=== PATIENT | female | born 1985 | race Hispanic/Latino ===

== ENCOUNTER 2017-11-15 08:16 | Inpatient (IN) | payer BC, OTHER ==
[2017-11-12 10:38] VITALS: BMI 33.6
[2017-11-15 09:17] LABS: BASO # 0.1 K/uL (0.0-0.2); BASO % 0.9 % (0.0-2.0); EOS # 0.1 K/uL (0.0-0.7); EOS % 1.1 % (0.0-4.0); HEMOGLOBIN 13.2 g/dL (12.0-16.0); LYMPH # 1.9 K/uL (1.0-4.3); MEAN CELL VOLUME 91.8 fl (81.0-99.0); MEAN CORPUSCULAR HGB CONC 34.9 g/dL (33.0-37.0); MEAN PLATELET VOLUME 8.4 fl (7.2-11.7); MONO # 0.3 K/uL (0.0-0.8); MONO % 5.7 % (0.0-10.0); NEUT # 3.6 K/uL (1.8-7.0); NEUT % 60.3 % (50.0-75.0); NRBC % 0.1 % (0.0-0.0); RBC 4.12 Mil/uL (3.80-5.20); RED CELL DISTRIBUTION WIDTH 13.1 % (11.5-14.5); WHITE BLOOD COUNT 5.9 K/uL (4.8-10.8)
[2017-11-15] MEDS ORDERED: Lactated Ringer's 1,000 ML IV ONE ×3 (09:30→17:00)
[2017-11-15] MEDS ORDERED: Bupivacaine 0.5% Inj(30mL) ONE (11:11)
[2017-11-15] MEDS ORDERED: Midazolam 2 MG/2 ML VIAL ONE (12:00)
[2017-11-15] MEDS ORDERED: Propofol 10 mg/ml Inj (20 ML) ONE (12:00)
[2017-11-15] MEDS ORDERED: ePHEDrine 50 mg/ml Inj ONE (12:01)
[2017-11-15] MEDS ORDERED: Lidocaine 4% (Laryng-O-Jet) Kit MM ONE (12:02)
[2017-11-15] MEDS ORDERED: Succinylcholine 200 mg/10 ml Inj IV ONE (12:02)
[2017-11-15] MEDS ORDERED: Rocuronium 10 mg/ml (5 ml) ONE (12:02)
[2017-11-15] MEDS ORDERED: Dexamethasone 4 mg/1 ml ONE (12:40)
[2017-11-15] MEDS ORDERED: Bupivacaine 0.5% Inj(30mL) IJ ONE (12:42)
[2017-11-15] MEDS ORDERED: Desflurane Inhalation Anesthetic Liq (240 ml) ONE (13:25)
[2017-11-15] MEDS ORDERED: Lactated Ringer's 1,000 ML IV SCH (15:00)
[2017-11-15] MEDS ORDERED: Oxycodone/Acetaminophen 5/325 mg Tab PO PRN (15:31)
[2017-11-15 17:33] VITALS: RESP 20
[2017-11-15] MEDS: ceFAZolin 2 GM in Sodium Chloride 0.9% 100 ML IVPB SCH (21:12)
[2017-11-16] MEDS: ceFAZolin 2 GM in Sodium Chloride 0.9% 100 ML IVPB SCH ×2 (03:10→11:18)
[2017-11-16 07:04] LABS: BLOOD UREA NITROGEN 9 mg/dl (7-17); CALCIUM 8.8 mg/dL (8.4-10.2); GFR AFRICAN-AMERICAN > 60; GFR NON-AFRICAN AMERICAN > 60; HEMOGLOBIN 11.8 g/dL (12.0-16.0); MEAN CELL VOLUME 92.9 fl (81.0-99.0); MEAN CORPUSCULAR HEMOGLOBIN 32.3 pg (27.0-31.0); MEAN CORPUSCULAR HGB CONC 34.8 g/dL (33.0-37.0); RBC 3.66 Mil/uL (3.80-5.20); RED CELL DISTRIBUTION WIDTH 13.2 % (11.5-14.5); WHITE BLOOD COUNT 7.8 K/uL (4.8-10.8)
--- NOTE | 2017-11-16 09:11 | CP.PCM.PN ---
Subjective - Date & Time of Evaluation Date of Evaluation: 11/16/17 Time of Evaluation: 08:00 - Subjective Subjective: Patient seen and examined OOB to chair comfortable. She was nauseous yesterday but this is resolved today as she is tolerating her breakfast well. Her pain is well controlled and she was able to void and transfer without difficulty. No new complaints. Objective - Vital Signs/Intake and Output Vital Signs (last 24 hours): Temp Pulse Resp BP Pulse Ox 99.9 F H 88 20 122/64 98 11/16/17 04:40 11/16/17 04:40 11/16/17 04:40 11/16/17 04:40 11/16/17 04:40 - Medications Medications: Current Medications Hydromorphone HCl (Dilaudid) 0.5 mg IVP Q4H PRN PRN Reason: Pain, moderate (4-7) Last Admin: 11/16/17 03:01 Dose: 0.5 mg Lactated Ringer's (Lactated Ringer's) 1,000 mls @ 125 mls/hr IV .Q8H LINDA Last Admin: 11/16/17 03:08 Dose: 125 mls/hr Cefazolin Sodium 2 gm/ Sodium (Chloride) 100 mls @ 100 mls/hr IVPB Q8H LINDA PRN Reason: Protocol Stop: 11/16/17 12:59 Last Admin: 11/16/17 03:10 Dose: 100 mls/hr Ondansetron HCl (Zofran Inj) 4 mg IVP Q6 PRN PRN Reason: Nausea/Vomiting Last Admin: 11/15/17 20:27 Dose: 4 mg Oxycodone/Acetaminophen (Percocet 5/325 Mg Tab) 1 tab PO Q6 PRN PRN Reason: Pain, moderate (4-7) Stop: 11/18/17 15:32 Last Admin: 11/16/17 09:02 Dose: 1 tab - Labs Labs: 11/16/17 06:30 11/16/17 06:30 - Constitutional Appears: No Acute Distress - Eye Exam Eye Exam: Normal appearance - ENT Exam ENT Exam: Mucous Membranes Moist - Respiratory Exam Respiratory Exam: NORMAL BREATHING PATTERN - GI/Abdominal Exam GI & Abdominal Exam: Soft, Normal Bowel Sounds Additional comments: Portal dressings clean dry and intact, mild tenderness about portal sites, no erythema or drainage. - Neurological Exam Neurological Exam: Alert, Awake, Oriented x3 - Psychiatric Exam Psychiatric exam: Normal Affect, Normal Mood Assessment and Plan (1) Endometriosis Assessment & Plan: Patient is POD#1 from robotic laproscopy, hysteroscopy and laproscopic appendectomy doing well -Complete abx dose -OOB as luis -no heavy lifting -ok to d/c home -call office for appt -will d/w Dr. Tracy Status: Acute
[2017-11-16 12:33] VITALS: BP 114/64; PULSE 88; TEMP 99.1; O2SAT 97
--- NOTE | 2017-11-18 08:36 | PCM.OP ---
Operative Report - Operative Report Date of Surgery/Procedure: 11/15/17 Time of Surgery/Procedure: 10:00 Surgeon: Dr. Jamal Swanson Kaiako Kohanga Reo: Dr. Anil Tracy Anesthesia/Sedation: general/Dr. Capone Pre-Operative Diagnosis: abdominal pain and enodmetriosis Post-Operative Diagnosis: appendix and mendy-rectal endometriosis Indication for Surgery: as above Operative Findings: as above Procedure/Operation Description: 1-Excision mendy-rectal endometriosis. 2- Appendectomy. 3-Lysis of Adhesions. Breif History: This is a 31 year old woman with past medical histroyn of abdominal pain and endometriosis who was already brought to the operating room by Dr. Tracy for robotic exploration when he requested an intraoperative general surgery consultation for invovlement of the rectum and appendix. Description of the Procedure: The patient had already been brought to the operating room and had undergone robotic exploration (separate didctation Dr. Tracy). After taking control of the robotic console significant adhesions were noted in the pelvis involving the sigmoid colon, reectum and uterus. With blunt and sharp dissection with the aid of electrocautery these were completely lysed. Then the area of the rectum was first inspected and a lesion in the mid-portion of the rectum was recognized. Using blunt and sharp dissection with the aid of electrocautery the lesion was incised circumferentially and was excised en-bloc accordingly. The specimen was marked and sent to pathology separately. Our attention turned to the appendix and using the electrocautery the mesentery of the appendix was dessicated with particular attention to the appendiceal artery. With the dissection complete to the base a 3-0 PDS endoloop was placed at the base and the appendix was ligated. Another two endoloops were placed in the usual fashion. the appendix was trasected and the mucosa was gmnetly dessicated with electrocautery. The [facility] was marked [facility] Hemostasis was deemed adeqaute and all counts were correct. The operation was then turned oveer to Dr. Tracy (separate dictation Dr. Tracy). Estimated Blood Loss: 200 cc Complications: none Specimen: 6-Gsil-erwhub ednometriosis. 2-Appendix Discharge & Condition: stable
--- NOTE | 2017-11-27 14:38 | OP ---
PROCEDURE DATE: 11/15/2017 PREOPERATIVE DIAGNOSES: Pelvic pain and history of recurrent endometriosis. POSTOPERATIVE DIAGNOSES: Pelvic pain and history of recurrent endometriosis. Pelvic adhesion, pelvic endometriosis, and left hydrosalpinx. PROCEDURE PERFORMED: Cystoscopy with bilateral ureteral catheterization and injection of dye IC green, hysteroscopy diagnostic, robotic laparoscopy,lysis of adhesions, right ureterolysis., left ureterolysis, excision of endometriosis and left salpingectomy, and separately an appendectomy to be dictated by Dr. Swanson from General Surgery. SURGEON: Anil Tracy MD MARKETING STRATEGY LEAD: Jamal Swanson MD TYPE OF ANESTHESIA: General endotracheal. ESTIMATED BLOOD LOSS: Minimal. COMPLICATIONS: None. SPECIMEN: Multiple specimens from the pelvic sidewall and fallopian tube and appendix sent to pathology. INDICATION FOR THE PROCEDURE: The patient is a 31-year-old female with a history of two prior surgeries for severe endometriosis. The patient had persistent symptoms. She was counseled with regards to the extensive and risk of the surgery and risk of benefits. Prior to the surgery, she reaffirmed a desire to move forward with the surgery. She signed the consent and she was taken to the OR. Please note that the patient had two prior surgeries, which were very extensive including one from a Gynecologic/Oncologist requiring extensive dissection and therefore, evaluation of the ureters with fluorescent technology was absolutely necessitate in this case. DESCRIPTION OF PROCEDURE: After adequate anesthesia was obtained, the patient was placed in the dorsal lithotomy position. An extreme care was placed in padding every area prone to pressure and also to avoid excessive hyperflexion or hyperextension of the hips, which were in a fixed position in a very comfortable state. At this point, the patient was prepped and draped. The surgeon was gowned and gloved. At this point, a cystoscope was placed into the bladder. The bladder appear to be normal without any stones or lesions. Both ureters were in the normal anatomical position. The left ureter was then cannulized with a 5-Slovak open-ended catheter to the distal ureter and 5 mL of IC-Green were injected. The right ureter was then also cannulized all the way to the distal ureter with 5 mL of IC-Green injected. At this point, the catheters were removed and a Prince was placed into the bladder. A speculum was placed into the vagina. The anterior lip of the cervix was grasped and the ureteres was visualized, cavity appear to be normal without any major lesions, tumors or polyps. At this point, attention was then on the abdomen where an open laparoscopy was performed according to standard technique. The fascia was incised using a knife and the peritoneum in a blunt way. At this point, a cannula was placed. The abdomen was insufflated and the pelvis was visualized. The findings were as follows; extensive adhesions involving a complex mass on the left hand side involving the ovary, the descending colon, and in a large area with endometriosis, the remnants of the left fallopian tube. On the right end side, the area was slightly freed, but the ovary involved on side with endometriotic disease. The appendix appear to be also involving adhesions. General surgery was called in to assist in the procedure. Under direct visualization, ports were placed in right upper quadrant, left upper quadrant, and mid quadrant and [employer] robot was brought into the field. Dr. Swanson, performed an appendectomy, that he will dictate separately and dissected the colon of the pelvic sidewall in the left hand side. The adhesions were mostly involved in the mesocolon. The left ovary was sitting right on top of the pelvic rim in a mass which was tubal ovarian mass including endometriosis disease. It was elaborate dissection, a fluorescent technology was used to identify the ureter in order to separate the structures, which were adherent to each other. Once they were freed, I was able to free up remnants of the fallopian tube, which had already been partially excised and a mass containing endometriosis in the left fallopian tube was excised and sent to pathology. The ovary otherwise at this point freed of endometriosis was repositioned in anatomical position. Attention now was on the right hand side where the ureter was identified, the ovary was elevated and progressive dissection was performed, freeing up the ovary, entering the retroperitoneal space and dissecting the ureter and lateralizing it and well medialized the peritoneal lesion containing endometriosis. A full dissection was performed with extreme care not to injure the ureter. That the obtained large area of peritoneum containing endometriosis, sent to pathology. At this point, the plasma energy device was brought into the field and it was utilized to ablate areas of peritoneum that appeared not to be affective by endometriosis, but to be quite inflamed. These were ablated including areas of cul-de-sac in the upper pelvic rim. At this point, she was checked for hemostasis and appear to be excellent. The pelvis was irrigated. The [employer] robot was undocked. The instruments were removed. The incision was closed in layers with 0 PDS for the fascia and, 4-0 Monocryl for the skin. At the end of the procedure, all tapes and instrument counts were correct. The patient tolerated the procedure well, was taken to recovery room in excellent condition. Anil Tracy MD
== END 2017-11-16 12:45 | disposition home or self-care (01) | DRG 334 ==
LOC: H.OPSURG 08:16 → H.PEDS 15:39
PROVIDERS: ADMIT Obstetrics & Gynecology Reproductive Endocrinology; ATTEND Obstetrics & Gynecology Reproductive Endocrinology
PROC: 8E0W4CZ Robotic Assisted Procedure of Trunk Region, Percutaneous Endoscopic Approach (ICD-10-PCS; 2017-11-15)
PROC: 0UJD8ZZ Inspection of Uterus and Cervix, Via Natural or Artificial Opening Endoscopic (ICD-10-PCS; 2017-11-15)
PROC: 0DBP4ZZ Excision of Rectum, Percutaneous Endoscopic Approach (ICD-10-PCS; principal; 2017-11-15 11:00)
PROC: 0DTJ4ZZ Resection of Appendix, Percutaneous Endoscopic Approach (ICD-10-PCS; 2017-11-15 11:00)
PROC: 0DNW4ZZ Release Peritoneum, Percutaneous Endoscopic Approach (ICD-10-PCS; 2017-11-15 11:00)
DX: N80.5 Endometriosis of intestine (principal); N73.6 Female pelvic peritoneal adhesions (postinfective)

== ENCOUNTER 2017-11-21 17:24 | Observation (INO) | payer BC ==
[2017-11-21 17:24] VITALS: BMI 33.6
--- NOTE | 2017-11-21 18:18 | ED PDOC ---
HPI: Abdomen Time Seen by Provider: 11/21/17 18:15 Chief Complaint (Nursing): Abdominal Pain Chief Complaint (Provider): abdominal pain History Per: Patient (31 y/o female recent robotic laproscopy, hysteroscopy and laproscopic appendectomy for endometriosis lesions by rectum/appendix 11/15 here for evaluation of fever 103 and lower abdominal pain. Denies any urinary frequency/hematuria/cough. Notes vomiting initially after sx and again today. Has has flatus but no BM in 1 week.) Past Medical History Reviewed: Historical Data, Nursing Documentation, Vital Signs Vital Signs: Last Vital Signs Temp 100.3 F H 11/21/17 18:11 Pulse 108 H 11/21/17 17:27 Resp 20 11/21/17 17:27 BP 115/78 11/21/17 17:27 Pulse Ox 99 11/21/17 20:18 - Medical History PMH: Denies: Chronic Kidney Disease - Family History Family History: States: No Known Family Hx - Home Medications Home Medications: Ambulatory Orders Medication Instructions Recorded Metformin ER [Glucophage XR] 750 mg PO BID 11/15/17 Sertraline [Zoloft] 12.5 mg PO DAILY 11/15/17 - Allergies Allergies/Adverse Reactions: Allergies Allergy/AdvReac Type Severity Reaction Status Date / Time No Known Allergies Allergy Verified 11/15/17 08:36 Review of Systems ROS Statement: Except As Marked, All Systems Reviewed And Found Negative Constitutional: Positive for: Fever Gastrointestinal: Positive for: Vomiting, Abdominal Pain Physical Exam - Reviewed Nursing Documentation Reviewed: Yes Vital Signs Reviewed: Yes - Physical Exam Appears: Positive for: Well, Non-toxic, No Acute Distress Head Exam: Positive for: ATRAUMATIC, NORMAL INSPECTION, NORMOCEPHALIC Skin: Positive for: Normal Color, Warm, DRY Eye Exam: Positive for: EOMI, Normal appearance, PERRL ENT: Positive for: Normal ENT Inspection Neck: Positive for: Normal, Painless ROM Cardiovascular/Chest: Positive for: Regular Rate, Rhythm Respiratory: Positive for: CNT, Normal Breath Sounds Gastrointestinal/Abdominal: Positive for: Normal Exam, Bowel Sounds, Soft, Other (active bowel movements. Patient notes abdominal pain lower/suprapubic region) Back: Positive for: Normal Inspection Extremity: Positive for: Normal ROM Neurologic/Psych: Positive for: Alert, Oriented - Laboratory Results Result Diagrams: 11/21/17 19:00 11/21/17 19:00 - ECG O2 Sat by Pulse Oximetry: 99 - Progress ED Course And Treament: operating room surgical technician to come to ED for evaluation of patient. recommendation for CT abd/pelvis with oral/iv contrast. NS 1 liter 500ml per hour Disposition - Clinical Impression Clinical Impression: Abdominal pain in female - Patient ED Disposition Is Patient to be Admitted: Transfer of Care - Disposition Disposition: Transfer of Care Disposition Time: 20:00 Condition: FAIR Instructions: Acute Abdomen (Belly Pain) Forms: Kiala (Nepali) Patient Signed Over To: Anay Schneider Handoff Comments: pending UA/CT abd-pelvis
[2017-11-21] MEDS ORDERED: Sodium Chloride 0.9% 1,000 ML IV STA (18:21)
[2017-11-21] MEDS ORDERED: Iohexol 240 (50 ml) PO ONE (18:32)
[2017-11-21 19:14] LABS: BASO % 0.3 % (0.0-2.0); EOS # 0.1 K/uL (0.0-0.7); EOS % 0.9 % (0.0-4.0); HEMOGLOBIN 12.3 g/dL (12.0-16.0); LYMPH # 0.8 K/uL (1.0-4.3); LYMPH % 10.4 % (20.0-40.0); MEAN CELL VOLUME 91.9 fl (81.0-99.0); MEAN CORPUSCULAR HEMOGLOBIN 31.6 pg (27.0-31.0); MEAN CORPUSCULAR HGB CONC 34.4 g/dL (33.0-37.0); MEAN PLATELET VOLUME 7.9 fl (7.2-11.7); MONO # 0.5 K/uL (0.0-0.8); MONO % 5.8 % (0.0-10.0); NEUT # 6.6 K/uL (1.8-7.0); NEUT % 82.6 % (50.0-75.0); NRBC % 0.1 % (0.0-0.0); RBC 3.89 Mil/uL (3.80-5.20); RED CELL DISTRIBUTION WIDTH 12.4 % (11.5-14.5)
[2017-11-21 19:27] LABS: ALB/GLOB RATIO 1.2 (1.0-2.1); ALBUMIN 4.3 g/dL (3.5-5.0); ALT/SGPT 90 U/L (9-52); AST/SGOT 40 U/L (14-36); BLOOD UREA NITROGEN 11 mg/dl (7-17); CALCIUM 9.5 mg/dL (8.4-10.2); GFR AFRICAN-AMERICAN > 60; GFR NON-AFRICAN AMERICAN > 60; INR 1.3 (0.9-1.2); LIPASE 52 U/L (23-300); PARTIAL THROMBOPLASTIN TIME 33.4 Seconds (25.6-37.1)
[2017-11-21] MEDS ORDERED: Iohexol 240 (50 ml) ONE (19:27)
[2017-11-21 19:40] LABS: SQUAMOUS EPITHIAL 3 /hpf (0-5); URINE BILIRUBIN NEGATIVE (NEGATIVE); URINE BLOOD MODERATE (NEGATIVE); URINE CLARITY SLIGHTY-CLOUDY (Clear); URINE COLOR YELLOW (YELLOW); URINE GLUCOSE (UA) NEG (Normal); URINE LEUKOCYTE ESTERASE NEG Leu/uL (Negative); URINE NITRATE NEGATIVE (NEGATIVE); URINE PROTEIN 30 mg/dL (NEGATIVE); URINE UROBILINOGEN 0.2-1.0 mg/dL (0.2-1.0)
[2017-11-21] MEDS ORDERED: Iohexol 300 100 ML IJ ONE (21:14)
[2017-11-21] MEDS ORDERED: Bisacodyl 5mg EC Tab PO PRN (22:25)
--- NOTE | 2017-11-21 22:46 | CT ---
EXAM: CT Abdomen and Pelvis With Intravenous Contrast EXAM DATE/TIME: 11/21/2017 6:32 PM CLINICAL HISTORY: 31 years old, female; Pain; Abdominal pain; Generalized; Prior surgery; Surgery date: 3-7 days post-operative; Surgery type: Robotic endometriosis, and appendix was removed; Additional info: R/O sbo TECHNIQUE: Axial computed tomography images of the abdomen and pelvis with intravenous contrast. All CT scans at this facility use one or more dose reduction techniques, viz.: automated exposure control; ma/kV adjustment per patient size (including targeted exams where dose is matched to indication; i.e. head); or iterative reconstruction technique. Coronal and sagittal reformatted images were created and reviewed. CONTRAST: 90 mL of [id number] administered intravenously. COMPARISON: There are no prior studies for comparison. FINDINGS: Lower thorax: Heart size is normal. Lung bases are clear ABDOMEN: Liver: unremarkable Gallbladder and bile ducts: unremarkable Pancreas: unremarkable Spleen: Spleen is mildly enlarged. There are multiple splenules in the left upper quadrant. Adrenals: unremarkable Kidneys and ureters: unremarkable Stomach and bowel: The stomach is partially distended. Rotation is normal. There is no small bowel obstruction. Proximal small bowel is opacified with contrast and is normal in caliber. The distal small bowel is distended with air. There is distal and terminal ileal wall thickening and fold irregularity. There is thickening of the base of the cecum with fluid around the base of the cecum. There is phlegmon/posterior and medial to the cecum, image 56 series 602, images 110-118, series 3. There is a moderately large amount of stool throughout the colon. Appendix: Surgically absent PELVIS: Bladder: Bladder is partially distended. Reproductive: Uterus is unremarkable. There is prominence of both adnexa. ABDOMEN and PELVIS: Intraperitoneal space: There is a small amount of free fluid in the pelvis. There is fluid around the base of the cecum. There is a small amount of free air both lower quadrants of the pelvis. Bones/joints: There are no acute osseous abnormalities. Soft tissues: There are postsurgical changes in the abdominal wall. Vasculature: There are pelvic varices bilaterally. There are multiple collateral vessels in the left retroperitoneum. Aorta and inferior vena cava are unremarkable. Lymph nodes: There are multiple mildly enlarged mesenteric nodes greatest in the right lower quadrant. There is shotty para-aortic adenopathy. IMPRESSION: Distal and terminal ileal inflammation with wall and fold thickening and inflammation and thickening of the base of the cecum; fluid around the base of the cecum with postero-medial phlegmon; prior appendectomy; small amount of postoperative free air in both lower quadrants of the pelvis; prominence of both adnexa; bilateral pelvic varices with multiple collateral vessels in the left retroperitoneum; mild splenomegaly; adenopathy
--- NOTE | 2017-11-21 22:50 | ED PDOC ---
- Laboratory Results Result Diagrams: 11/21/17 19:00 11/21/17 19:00 - ECG O2 Sat by Pulse Oximetry: 99 - Progress ED Course And Treament: Case endorsed to investigative writer from Marcelino THOMAS pending CT EXAM: CT Abdomen and Pelvis With Intravenous Contrast EXAM DATE/TIME: 11/21/2017 6:32 PM CLINICAL HISTORY: 31 years old, female; Pain; Abdominal pain; Generalized; Prior surgery; Surgery date: 3-7 days postoperative; Surgery type: Robotic endometriosis, and appendix was removed; Additional info: R/O sbo TECHNIQUE: Axial computed tomography images of the abdomen and pelvis with intravenous contrast. All CT scans at this facility use one or more dose reduction techniques, viz.: automated exposure control; ma/kV adjustment per patient size (including targeted exams where dose is matched to indication; i.e. head); or iterative reconstruction technique. Coronal and sagittal reformatted images were created and reviewed. CONTRAST: 90 mL of [id number] administered intravenously. COMPARISON: There are no prior studies for comparison. FINDINGS: Lower thorax: Heart size is normal. Lung bases are clear ABDOMEN: Liver: unremarkable Gallbladder and bile ducts: unremarkable Pancreas: unremarkable Spleen: Spleen is mildly enlarged. There are multiple splenules in the left upper quadrant. Adrenals: unremarkable Kidneys and ureters: unremarkable Stomach and bowel: The stomach is partially distended. Rotation is normal. There is no small bowel obstruction. Proximal small bowel is opacified with contrast and is normal in caliber. The distal small bowel is distended with air. There is distal and terminal ileal wall thickening and fold irregularity. There is thickening of the base of the cecum with fluid around the base of the cecum. There is phlegmon/posterior and medial to the cecum, image 56 series 602, images 110-118 , series 3. There is a moderately large amount of stool throughout the colon. Appendix: Surgically absent PELVIS: Bladder: Bladder is partially distended. Reproductive: Uterus is unremarkable. There is prominence of both adnexa. ABDOMEN and PELVIS: Intraperitoneal space: There is a small amount of free fluid in the pelvis. There is fluid around the base of the cecum. There is a small amount of free air both lower quadrants of the pelvis. Bones/joints: There are no acute osseous abnormalities. Soft tissues: There are postsurgical changes in the abdominal wall. Vasculature: There are pelvic varices bilaterally. There are multiple collateral vessels in the left retroperitoneum. Aorta and inferior vena cava are unremarkable. Lymph nodes: There are multiple mildly enlarged mesenteric nodes greatest in the right lower quadrant. There is shotty para-aortic adenopathy. IMPRESSION: Distal and terminal ileal inflammation with wall and fold thickening and inflammation and thickening of the base of the cecum; fluid around the base of the cecum with postero-medial phlegmon; prior appendectomy; small amount of postoperative free air in both lower quadrants of the pelvis; prominence of both adnexa; bilateral pelvic varices with multiple collateral vessels in the left retroperitoneum; mild splenomegaly; adenopathy Dr. Everett aware of CT findings, IV antibiotics ordered, patient to be admitted as per Dr. Swanson. Disposition - Clinical Impression Clinical Impression: Postoperative abdominal pain - POA Present On Arrival: Surgical Site Infection - Disposition Disposition: Admitted as In-Patient Disposition Time: 22:15 Condition: FAIR
[2017-11-21] MEDS ORDERED: Piperacillin/Tazobact 3.375 GM in Sodium Chloride 0.9% 100 ML IVPB STA (23:00)
[2017-11-21] MEDS ORDERED: Piperacillin/Tazobact 3.375 gm Inj IVPB ONE (23:24)
[2017-11-21] MEDS: Sodium Chloride 0.9% 1,000 ML IV SCH (23:29)
[2017-11-21] MEDS: Piperacillin/Tazobact 3.375 GM in Sodium Chloride 0.9% 100 ML IVPB SCH ×2 (23:29→23:45)
--- NOTE | 2017-11-22 00:19 | CP.PCM.HP ---
History of Present Illness - History of Present Illness History of Present Illness: Surgery: Dr. Swanson CC: Abd pain HPI: 31F w. pmh of endometriosis w. underwent robotic assisted excision of endometriosis as well as SONA and appendectomy 1 week ago presents to ED w. new onset abd pain. Pt states that pain began at 5Am, pain is in the lower quadrants , pain is constant. Pt states that she has been having fevers as high as 103 and has been experiencing diaphoresis. Pain was associated w. nausea and several episodes of clear emesis. She also reports decreased appetite as well as lack of BM since surgery 7 days ago. She is passing flatus. Pt states that she was given narcotics following surgery and she has been taking them as scheduled w. out stool softener. In ED CT scan was done which showed pos- operative inflammatory changes / phlegmon, and constipation. PMH: endometriosis PSH: laparoscopic esxcision of endometriosis x 3 Meds: MAR reviewed NKDA Social: No ETOH/tobacco/drugs Fhx: Non-contributory Present on Admission - Present on Admission Any Indicators Present on Admission: No Review of Systems - Review of Systems All systems: reviewed and no additional remarkable complaints except (HPI) Past Patient History - Past Medical History & Family History Past Medical History?: No - Past Social History Smoking Status: Never Smoked - CARDIAC Hx Cardiac Disorders: No - PULMONARY Hx Respiratory Disorders: No - NEUROLOGICAL Hx Neurological Disorder: No - HEENT Hx HEENT Problems: No - RENAL Hx Chronic Kidney Disease: No - ENDOCRINE/METABOLIC Hx Endocrine Disorders: No - HEMATOLOGICAL/ONCOLOGICAL Hx Blood Disorders: No - INTEGUMENTARY Hx Dermatological Problems: No - MUSCULOSKELETAL/RHEUMATOLOGICAL Hx Musculoskeletal Disorders: No - GASTROINTESTINAL Hx Gastrointestinal Disorders: No - GENITOURINARY/GYNECOLOGICAL Hx Genitourinary Disorders: No - PSYCHIATRIC Hx Psychophysiologic Disorder: No Hx Substance Use: No - SURGICAL HISTORY Hx Surgeries: Yes Hx Dilation and Curettage: Yes (x4-miscarriage) Other/Comment: ivf x 3, laparoscopy x 2 - ANESTHESIA Hx Anesthesia: Yes Hx Anesthesia Reactions: No Hx Malignant Hyperthermia: No Meds Allergies/Adverse Reactions: Allergies Allergy/AdvReac Type Severity Reaction Status Date / Time No Known Allergies Allergy Verified 11/15/17 08:36 Physical Exam - Constitutional Appears: Non-toxic, No Acute Distress - Head Exam Head Exam: ATRAUMATIC, NORMOCEPHALIC - Eye Exam Eye Exam: EOMI - ENT Exam ENT Exam: Mucous Membranes Moist, Normal External Ear Exam - Neck Exam Neck exam: Positive for: Full Rom - Respiratory Exam Respiratory Exam: NORMAL BREATHING PATTERN. absent: Accessory Muscle Use, Respiratory Distress - GI/Abdominal Exam GI & Abdominal Exam: Firm (lower quadrants), Soft, Tenderness (lower quadrants) . absent: Distended, Guarding, Hernia, Rebound, Rigid Additional comments: incisions C/D/I - Extremities Exam Extremities exam: Negative for: calf tenderness, pedal edema - Neurological Exam Neurological exam: Alert, Oriented x3 - Psychiatric Exam Psychiatric exam: Normal Affect, Normal Mood Results - Vital Signs Recent Vital Signs: Last Vital Signs Temp 99.2 F 11/22/17 00:18 Pulse 102 H 11/22/17 00:18 Resp 18 11/22/17 00:18 BP 122/81 11/22/17 00:18 Pulse Ox 97 11/22/17 00:18 - Labs Result Diagrams: 11/21/17 19:00 11/21/17 19:00 Labs: Laboratory Results - last 24 hr 11/21/17 11/21/17 11/21/17 19:00 19:00 19:00 WBC 8.0 RBC 3.89 Hgb 12.3 Hct 35.8 MCV 91.9 MCH 31.6 H MCHC 34.4 RDW 12.4 Plt Count 259 MPV 7.9 Neut % (Auto) 82.6 H Lymph % (Auto) 10.4 L [place] % (Auto) 5.8 Eos % (Auto) 0.9 Baso % (Auto) 0.3 Neut # (Auto) 6.6 Lymph # (Auto) 0.8 L [place] # (Auto) 0.5 Eos # (Auto) 0.1 Baso # (Auto) 0.0 PT 14.0 H INR 1.3 H APTT 33.4 Sodium 139 Potassium 4.1 Chloride 99 Carbon Dioxide 25 Anion Gap 19 BUN 11 Creatinine 0.6 L Est GFR ( Amer) > 60 Est GFR (Non-Af Amer) > 60 Random Glucose 106 H Calcium 9.5 Total Bilirubin 0.8 AST 40 H ALT 90 H Alkaline Phosphatase 72 Total Protein 7.8 Albumin 4.3 Globulin 3.5 Albumin/Globulin Ratio 1.2 Lipase 52 Urine Color Urine Clarity Urine pH Ur Specific [place] Urine Protein Urine Glucose (UA) Urine Ketones Urine Blood Urine Nitrate Urine Bilirubin Urine Urobilinogen Ur Leukocyte Esterase Urine RBC (Auto) Urine Microscopic WBC Ur Squamous Epith Cells 11/21/17 19:05 WBC RBC Hgb Hct MCV MCH MCHC RDW Plt Count MPV Neut % (Auto) Lymph % (Auto) [place] % (Auto) Eos % (Auto) Baso % (Auto) Neut # (Auto) Lymph # (Auto) [place] # (Auto) Eos # (Auto) Baso # (Auto) PT INR APTT Sodium Potassium Chloride Carbon Dioxide Anion Gap BUN Creatinine Est GFR ( Amer) Est GFR (Non-Af Amer) Random Glucose Calcium Total Bilirubin AST ALT Alkaline Phosphatase Total Protein Albumin Globulin Albumin/Globulin Ratio Lipase Urine Color Yellow Urine Clarity Slighty-cloudy Urine pH 5.0 Ur Specific [place] 1.025 Urine Protein 30 Urine Glucose (UA) Neg Urine Ketones 80 Urine Blood Moderate Urine Nitrate Negative Urine Bilirubin Negative Urine Urobilinogen 0.2-1.0 Ur Leukocyte Esterase Neg Urine RBC (Auto) 7 H Urine Microscopic WBC 4 Ur Squamous Epith Cells 3 - Imaging and Cardiology CT scan - abdomen Status: Image reviewed by me, Report reviewed by me Assessment & Plan - Assessment and Plan (Free Text) Assessment: 31F 1 week post-op robotic assisted excision of endometriosis and appendectomy w. phlegmon and constipation -NPO -IVF -zosyn -avoid narcotics, tylenol / NSAIds for pain -stool softeners -serial abd exam -d/w dr. Sky Everett PGY3 Decision To Admit - Pt Status Changed To: Hospital Disposition Of: Observation - . Bed Request Type: Med/Surg Admitting Physician: Jamal Swanson
[2017-11-22] MEDS: Piperacillin/Tazobact 3.375 GM in Sodium Chloride 0.9% 100 ML IVPB SCH ×3 (05:47→19:50)
[2017-11-22] MEDS: Insulin Regular 100 units/ml SC SCH ×3 (06:58→16:39)
[2017-11-22] MEDS: Sodium Chloride 0.9% 1,000 ML IV SCH ×3 (06:58→22:30)
--- NOTE | 2017-11-22 15:33 | CP.PCM.PN ---
Subjective - Date & Time of Evaluation Date of Evaluation: 11/22/17 Time of Evaluation: 09:00 - Subjective Subjective: patient [id number] ovbernight with nausea and temperature spike at home on admission patient was afebrile passing gas a ct scan reveal no bowel obstruction or perforation thi am patiewnt had bowel movement x2 doing well otherwise on antibiotics Objective - Vital Signs/Intake and Output Vital Signs (last 24 hours): Temp Pulse Resp BP Pulse Ox 98.5 F 76 18 106/71 97 11/22/17 07:40 11/22/17 07:40 11/22/17 07:40 11/22/17 07:40 11/22/17 07:40 - Medications Medications: Current Medications Acetaminophen (Tylenol 325mg Tab) 650 mg PO Q6 PRN PRN Reason: Pain, Mild (1-3) Last Admin: 11/22/17 06:01 Dose: 650 mg Bisacodyl (Dulcolax) 10 mg PO DAILY PRN PRN Reason: Constipation Docusate Sodium (Colace) 100 mg PO BID [facility] Last Admin: 11/22/17 08:26 Dose: 100 mg Famotidine (Pepcid) 20 mg PO BID [facility] Last Admin: 11/22/17 08:26 Dose: 20 mg Sodium Chloride (Sodium Chloride 0.9%) 1,000 mls @ 125 mls/hr IV .Q8H [facility] Last Admin: 11/22/17 06:58 Dose: Not Given Piperacillin Sod/Tazobactam (Sod 3.375 gm/ Sodium Chloride) 100 mls @ 100 mls/ hr IVPB Q6H [facility] PRN Reason: Protocol Last Admin: 11/22/17 11:59 Dose: 100 mls/hr Insulin Human Regular (Humulin R) 0 units SC ACHS [facility] PRN Reason: Protocol Last Admin: 11/22/17 11:53 Dose: Not Given Ketorolac Tromethamine (Toradol) 30 mg IVP Q6 PRN PRN Reason: Pain, moderate (4-7) Ondansetron HCl (Zofran Inj) 4 mg IVP Q4 PRN PRN Reason: Nausea/Vomiting - Labs Labs: 11/21/17 19:00 11/21/17 19:00 PT 14.0 Seconds (9.8-13.1) H 11/21/17 19:00 INR 1.3 (0.9-1.2) H 11/21/17 19:00 APTT 33.4 Seconds (25.6-37.1) 11/21/17 19:00 Assessment and Plan - Assessment and Plan (Free Text) Assessment: post surgical ileum possible appendectomy site inflammation much improved this am Plan: reviewed case with dr baltazar from general surgery will continue abx advance diet in pm and d/c home in am on oral abx av
[2017-11-23 00:19] VITALS: O2SAT 98
[2017-11-23] MEDS: Piperacillin/Tazobact 3.375 GM in Sodium Chloride 0.9% 100 ML IVPB SCH ×2 (00:20→06:30)
[2017-11-23] MEDS: Sodium Chloride 0.9% 1,000 ML IV SCH (06:38)
[2017-11-23 08:16] VITALS: BP 117/69; PULSE 68; RESP 18; TEMP 97.9
--- NOTE | 2017-11-23 15:21 | CP.PCM.DIS ---
Provider - Provider Date of Admission: 11/21/17 22:14 Attending physician: Jamal Swanson MD Time Spent in preparation of Discharge (in minutes): 40 Hospital Course - Lab Results Lab Results: Micro Results 11/21/17 19:05 Urine,Clean Catch Urine Culture - Final 50-100,000 CFU/ML. MULTIPLE SPECIES. SUGGEST REPEAT SPECIMEN. 11/21/17 19:19 Blood-Venous Blood Culture - Preliminary NO GROWTH AFTER 24 HOURS 11/21/17 18:55 Blood-Venous Blood Culture - Preliminary NO GROWTH AFTER 24 HOURS Most Recent Lab Values WBC 8.0 K/uL (4.8-10.8) 11/21/17 19:00 RBC 3.89 Mil/uL (3.80-5.20) 11/21/17 19:00 Hgb 12.3 g/dL (12.0-16.0) 11/21/17 19:00 Hct 35.8 % (34.0-47.0) 11/21/17 19:00 MCV 91.9 fl (81.0-99.0) 11/21/17 19:00 MCH 31.6 pg (27.0-31.0) H 11/21/17 19:00 MCHC 34.4 g/dL (33.0-37.0) 11/21/17 19:00 RDW 12.4 % (11.5-14.5) 11/21/17 19:00 Plt Count 259 K/uL (130-400) 11/21/17 19:00 MPV 7.9 fl (7.2-11.7) 11/21/17 19:00 Neut % (Auto) 82.6 % (50.0-75.0) H 11/21/17 19:00 Lymph % (Auto) 10.4 % (20.0-40.0) L 11/21/17 19:00 [place] % (Auto) 5.8 % (0.0-10.0) 11/21/17 19:00 Eos % (Auto) 0.9 % (0.0-4.0) 11/21/17 19:00 Baso % (Auto) 0.3 % (0.0-2.0) 11/21/17 19:00 Neut # (Auto) 6.6 K/uL (1.8-7.0) 11/21/17 19:00 Lymph # (Auto) 0.8 K/uL (1.0-4.3) L 11/21/17 19:00 [place] # (Auto) 0.5 K/uL (0.0-0.8) 11/21/17 19:00 Eos # (Auto) 0.1 K/uL (0.0-0.7) 11/21/17 19:00 Baso # (Auto) 0.0 K/uL (0.0-0.2) 11/21/17 19:00 PT 14.0 Seconds (9.8-13.1) H 11/21/17 19:00 INR 1.3 (0.9-1.2) H 11/21/17 19:00 APTT 33.4 Seconds (25.6-37.1) 11/21/17 19:00 Sodium 139 mmol/l (132-148) 11/21/17 19:00 Potassium 4.1 MMOL/L (3.6-5.0) 11/21/17 19:00 Chloride 99 mmol/L (98-107) 11/21/17 19:00 Carbon Dioxide 25 mmol/L (22-30) 11/21/17 19:00 Anion Gap 19 (10-20) 11/21/17 19:00 BUN 11 mg/dl (7-17) 11/21/17 19:00 Creatinine 0.6 mg/dl (0.7-1.2) L 11/21/17 19:00 Est GFR ( Amer) > 60 11/21/17 19:00 Est GFR (Non-Af Amer) > 60 11/21/17 19:00 POC Glucose (mg/dL) 79 mg/dL (65-110) 11/22/17 11:18 Random Glucose 106 mg/dL (65-105) H 11/21/17 19:00 Calcium 9.5 mg/dL (8.4-10.2) 11/21/17 19:00 Total Bilirubin 0.8 mg/dl (0.2-1.3) 11/21/17 19:00 AST 40 U/L (14-36) H 11/21/17 19:00 ALT 90 U/L (9-52) H 11/21/17 19:00 Alkaline Phosphatase 72 U/L (38-126) 11/21/17 19:00 Total Protein 7.8 G/DL (6.3-8.2) 11/21/17 19:00 Albumin 4.3 g/dL (3.5-5.0) 11/21/17 19:00 Globulin 3.5 gm/dL (2.2-3.9) 11/21/17 19:00 Albumin/Globulin Ratio 1.2 (1.0-2.1) 11/21/17 19:00 Lipase 52 U/L (23-300) 11/21/17 19:00 Urine Color Yellow (YELLOW) 11/21/17 19:05 Urine Clarity Slighty-cloudy (Clear) 11/21/17 19:05 Urine pH 5.0 (5.0-8.0) 11/21/17 19:05 Ur Specific [place] 1.025 (1.003-1.030) 11/21/17 19:05 Urine Protein 30 mg/dL (NEGATIVE) 11/21/17 19:05 Urine Glucose (UA) Neg mg/dL (Normal) 11/21/17 19:05 Urine Ketones 80 mg/dL (NEGATIVE) 11/21/17 19:05 Urine Blood Moderate (NEGATIVE) 11/21/17 19:05 Urine Nitrate Negative (NEGATIVE) 11/21/17 19:05 Urine Bilirubin Negative (NEGATIVE) 11/21/17 19:05 Urine Urobilinogen 0.2-1.0 mg/dL (0.2-1.0) 11/21/17 19:05 Ur Leukocyte Esterase Neg [place]/uL (Negative) 11/21/17 19:05 Urine RBC (Auto) 7 /hpf (0-3) H 11/21/17 19:05 Urine Microscopic WBC 4 /hpf (0-5) 11/21/17 19:05 Ur Squamous Epith Cells 3 /hpf (0-5) 11/21/17 19:05 - Hospital Course Hospital Course: 31F w. pmh of endometriosis w. underwent robotic assisted excision of endometriosis as well as SONA and appendectomy 1 week ago presents to ED w. new onset abd pain. Pt states that pain began at 5Am, pain is in the lower quadrants , pain is constant. Pt states that she has been having fevers as high as 103 and has been experiencing diaphoresis. Pain was associated w. nausea and several episodes of clear emesis. She also reports decreased appetite as well as lack of BM since surgery 7 days ago. She is passing flatus. Pt states that she was given narcotics following surgery and she has been taking them as scheduled w. out stool softener. In ED CT scan was done which showed pos- operative inflammatory changes / phlegmon, and constipation. Patient was monitor for pain and bowel function, eventually tolerated diet, had multiple bowel movements while in house. Patient started on antibiotics which she will continue taking at home for one week with two week follow up with Dr. Tracy. Discharge Exam - Head Exam Head Exam: ATRAUMATIC, NORMOCEPHALIC - Eye Exam Eye Exam: EOMI, PERRL - Respiratory Exam Respiratory Exam: Clear to PA & Lateral, NORMAL BREATHING PATTERN - Cardiovascular Exam Cardiovascular Exam: REGULAR RHYTHM, +S1, +S2 - GI/Abdominal Exam GI & Abdominal Exam: Soft. absent: Distended, Firm, Rebound, Rigid, Tenderness Additional comments: Incisions CDI - Neurological Exam Neurological exam: Alert, Oriented x3 - Psychiatric Exam Psychiatric exam: Normal Affect, Normal Mood - Skin Skin Exam: Dry, Intact, Normal Color, Warm Discharge Plan - Discharge Medications Prescriptions: Ciprofloxacin HCl [Cipro] 500 mg PO Q12 7 Days tablet - Follow Up Plan Condition: FAIR Disposition: HOME/ ROUTINE Instructions: Acute Abdomen (Belly Pain) Additional Instructions: Please return to the ED for any emergencies. Please take medications as prescribed. Over the counter medication for pain. Please follow up with Dr. Tracy in 2 weeks. Referrals: Anil Tracy [Medical Doctor] -
== END 2017-11-23 11:30 | disposition home or self-care (01) ==
LOC: H.ER 17:24 → H.ERHOLD 22:14 → INTOOBSV 22:14 → H.MEDSURG1 11-22 00:07
PROVIDERS: ADMIT Surgery; ATTEND Surgery
DX: T81.4XXA Infection following a procedure, initial encounter (principal); G89.18 Other acute postprocedural pain; K59.00 Constipation, unspecified; Z90.49 Acquired absence of other specified parts of digestive tract; N80.9 Endometriosis, unspecified; Z79.84 Long term (current) use of oral hypoglycemic drugs
CPT/HCPCS: 74177; 80053; 81003; 81025; 82948; 83690; 85025; 85610; 85730; 87040; 87086; 96360; 99285; G0378; J2543; J7040; Q9966; Q9967